=== PATIENT | female | born 1985 | race Caucasian/White ===

== ENCOUNTER 2021-09-16 23:54 | Emergency (ER) | payer OTHER ==
[~2021-09-16] VITALS: Ht 170.2 cm; Wt 82.2 kg
--- NOTE | 2021-09-17 00:20 | PHYS DOC ---
Past Medical History Additional Past Medical Histor: Deficience Vit K+/D+ (SHAQ CHARLES Andrew [employer]) Past Surgical History: Tonsillectomy, Other Additional Past Surgical Histo: Gastric sleeve,RlatRelease/Tumor LBreast/L eye/Head Waters (SHAQ CHARLES Andrew [employer]) General Adult EDM: Chief Complaint: KNEE INJURY HPI: HPI: Patient is a 36 year old female who presents to the ED today complaining of 5 out of 10 sharp burning left knee pain, symptoms began this morning when she got up. Patient states she has been unable to straighten the left knee without severe pain. Denies any trauma. Denies anything specifically relieving the pain. [facility] and was instructed to follow-up with a specialist to come back to the ED at any point symptoms worsen. (ARACELISHAQ Morales [employer] [place]AGE) Review of Systems: Review of Systems: Constitutional: Denies fever or chills. [] Musculoskeletal: Reports left knee pain Integument: Denies rash. [] Neurologic: Denies headache, focal weakness or sensory changes. [] Psychiatric: Denies depression or anxiety. [] (IDRISRAVINSHAQ Cyr [employer] [place]AGE) Heart Score: C/O Chest Pain: N/A Risk Factors: Risk Factors: DM, Current or recent (<one month) smoker, HTN, HLP, family history of CAD, obesity. Risk Scores: Score 0 - 3: 2.5% MACE over next 6 weeks - Discharge Home Score 4 - 6: 20.3% MACE over next 6 weeks - Admit for Clinical Observation Score 7 - 10: 72.7% MACE over next 6 weeks - Early Invasive Strategies (SHAQ CHARLES [employer]) Allergies: Allergies: Allergies Coded Allergies Type Severity Reaction Last Updated Verified hydrocodone Allergy Severe ANAPHYLAXIS 09/17/21 Yes Penicillins Allergy Intermediate Hives 09/17/21 Yes sulindac Allergy Unknown HEART RACING 09/17/21 Yes (SHAQ CHARLES [employer]) Physical Exam: PE: Constitutional: Well developed, well nourished, no acute distress, non-toxic appearance. [] Skin: Warm, dry, no erythema, no rash. [] Back: No tenderness, no CVA tenderness. [] Extremities: Left knee with no obvious deformity, no edema, no ecchymosis, no tenderness on exam, limited range of motion to the left knee specifically flexion but patient is able to flex the knee with the help. +2 left pedal pulse. Cap refill less than 2 seconds the left lower extremity Neurologic: Alert and oriented X 3, normal motor function, normal sensory function, no focal deficits noted. [] Psychologic: Affect normal, judgement normal, mood normal. [] (SHAQ CHARLES [employer]) Current Patient Data: Vital Signs: Vital Signs Date Time Temp Pulse Resp B/P (MAP) Pulse Ox O2 Delivery O2 Flow Rate FiO2 09/16/21 23:54 98.1 94 18 125/73 (90) 98 Room Air 98.1 (SHAQ CHARLES P[employer]) EKG: EKG: [] (SHAQ CHARLES APRN) Radiology/Procedures: Radiology/Procedures: [] (SHAQ CHARLES APRN) Course & Med Decision Making: Course & Med Decision Making Pertinent Labs and Imaging studies reviewed. (See chart for details) This a 36-year-old female patient presenting to the ED today with left knee pain, symptoms began this morning, no known injury. Left knee x-rays are negative for any acute findings. Gary bandage applied to the left knee by the ED RN, neurovascular exam done by the RN is normal, ice elevation encouraged. Follow-up with Ortho in 1 week. OTC pain relievers (SHAQ CHARLES [employer]) Dragon Disclaimer: Dragon Disclaimer: This electronic medical record was generated, in whole or in part, using a voice recognition dictation system. (SHAQ CHARLES [employer]) Departure Departure Impression: Primary Impression: Left knee pain Qualified Codes: M25.562 - Pain in left knee Disposition: HOME / SELF CARE / HOMELESS Condition: STABLE Referrals: LOYD MEDINA II, MD follow up in 1 week Patient Instructions: Knee Pain, [id number] Additional Instructions: You were evaluated in the emergency room for left knee pain, left knee x-rays are negative for any acute findings, try to ice and elevate the extremity. Follow-up with the provided orthopedic doctor in 1 week if pain persist. Wear the Gary bandage provided as tolerated Scripts Oxycodone Hcl (OXYCODONE HCL) 5 Mg Capsule 5 MG PO PRN Q6HRS PRN for PAIN, #6 TAB 0 Refills Prov: CRISTINA WARREN DO 09/17/21 Oxycodone Hcl (OXYCODONE HCL) 5 Mg Capsule 5 MG PO PRN Q6HRS PRN for PAIN, #6 TAB 0 Refills Prov: SHAQ CHARLES APRN 09/17/21 SHAQ CHARLES APRN Sep 17, 2021 00:20 CRISTINA WARREN DO Sep 17, 2021 09:50
--- NOTE | 2021-09-17 01:31 | RAD ---
Exam: XR KNEE _4 VIEWS WITH PATELLA_LT History: Knee pain. Comparison: None. Findings: Osseous mineralization is normal. No acute fracture or dislocaton. There are tricompartmental osteoph ytes. The joint spaces are relatively maintained. No knee effusion or focal soft tissue swelling. Impression: 1. 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 No acute osseous abnorma lity. Electronically signed by: Chema Ramirez MD (09/17/2021 1:28 AM) [facility]
[2021-09-17 02:00] VITALS: BP 132/79
[2021-09-17] MEDS ORDERED: OXYC5CAP PO ×2 (02:15→09:48)
== END 2021-09-17 02:35 | disposition home or self-care (01) ==
LOC: ER 23:54
DX: M25.562 Pain in left knee (principal); Z88.0 Allergy status to penicillin; Z88.2 Allergy status to sulfonamides; Z88.5 Allergy status to narcotic agent
CPT/HCPCS: 73564; 99283; A6450